=== PATIENT | female | born 1960 | race Caucasian/White ===

== ENCOUNTER → 2016-07-17 | Outpatient (CLI) | payer BC ==
--- NOTE | 2016-07-17 17:43 | CT ---
CT Scan of the Chest (Without Contrast) Clinical Indications: 30 pack-year history of smoking. Current smoker, evaluate for nodules. Technique: Multidetector helical CT was performed from the superior thoracic inlet to the diaphragm. No intravenous contrast was given. The radiologist manipulated images at the computer workstation. Dose reduction techniques were utilized. Findings: The lungs are clear, and there is no pleural effusion. There is a 2 mm right upper lobe n odule best seen on the coronal imaging series 6 image 32. This was confirmed on the sagittal imaging but is slightly difficult to see on the axial imaging. There is 1 mm calcified granuloma in the left lower lobe series 4 image 130. There are no masses in the lungs and pleura. The great vessels and pe ricardium are grossly unremarkable. No pneumothorax. Impression: 2 mm left upper lobe pulmonary nodule. If the patient is high-risk for cancer recommend follow up in one year based on Fleischner Society guidelines. If the patient is low risk for cancer, no follow up is needed. A Follow-Up Required test result notification was sent via the [employer] service, 5:39:15 PM, 07/17/2016, [employer] Message ID [id number].
== END ==
LOC: FIMAGING 12:48
PROVIDERS: ATTEND Family Medicine
DX: R91.8 Other nonspecific abnormal finding of lung field (principal); Z00.00 Encounter for general adult medical examination without abnormal findings; E03.9 Hypothyroidism, unspecified; Z72.0 Tobacco use

== ENCOUNTER → 2018-09-29 | Outpatient (CLI) | payer BC | LOC: BMCIMAGING 12:12 | PROVIDERS: ATTEND Family Medicine | DX: S62.514A Nondisplaced fracture of proximal phalanx of right thumb, initial encounter for closed fracture (principal); S79.911A Unspecified injury of right hip, initial encounter ==

== ENCOUNTER → 2018-10-26 | Outpatient (CLI) | payer BC | LOC: BMCIMAGING 14:24 | PROVIDERS: ATTEND Emergency Medicine | DX: S62.511A Displaced fracture of proximal phalanx of right thumb, initial encounter for closed fracture (principal) ==